=== PATIENT | female | born 1955 | race Caucasian/White ===

== ENCOUNTER 2016-10-09 23:07 | Emergency (ER) | payer MEDICARE ==
[~2016-10-09] VITALS: Ht 154.9 cm; Wt 81.8 kg
[~2016-10-09 23:07] MED LIST: BACL10TA PO; BENZ0.5T6 PO; BENZ2TAB10 PO; BUME1TAB30 PO; CARB-101 PO; CIPR-278 PO; CLON.1 PO; DULO60CA44 PO; GABA-531 PO; RASA0.5T PO; SERT50TA12 PO; TRAZ-147 PO
[2016-10-09 23:38] LABS: BASOPHILS % (AUTO) 0.4 % (0.0-2.0); EOSINOPHILS % (AUTO) 0 % (1.0-6.0); HEMATOCRIT 39.4 % (36-46); HEMOGLOBIN 12.8 g/dL (12.0-16.0); LYMPHOCYTES # (AUTO) 1.1 K/uL (1.0-4.8); LYMPHOCYTES % (AUTO) 12.2 % (22.0-44.0); MEAN CORPUSCULAR HEMOGLOBIN 27.9 pg (26.0-34.0); MEAN CORPUSCULAR HGB CONC 32.6 G/dL (31.0-37.0); MEAN CORPUSCULAR VOLUME 86 fL (80-100); MONOCYTES # (AUTO) 0.6 K/uL (0.1-1.0); MONOCYTES % (AUTO) 7.4 % (2.0-9.0); PLATELET COUNT (AUTO) 223 K/uL (150-450); RED BLOOD CELL COUNT(AUTO) 4.61 MIL/uL (4.00-5.20); RED CELL DISTRIBUTION WIDTH 14.3 % (11.5-14.5); WHITE BLOOD COUNT (AUTO) 8.7 K/uL (4.5-11.0)
[2016-10-09 23:46] LABS: ANION GAP 8 mmol/L (8-16); CALCIUM, TOTAL 9.4 mg/dL (8.8-10.5); CARBON DIOXIDE 29 mmol/L (22-29); CHLORIDE 106 mmol/L (98-107); CREATININE 0.83 mg/dL (0.60-1.30); GLOMERULAR FILTR. RATE CALC > 60 mL/min (>60); POTASSIUM 4.4 mmol/L (3.5-5.1); SODIUM SERUM 143 mmol/L (136-145); UREA NITROGEN, BLOOD 20 mg/dL (7-18)
[2016-10-09 23:53] LABS: ALANINE AMINOTRANSFERASE 16 U/L (12-78); ALBUMIN 3.4 g/dL (3.4-5.0); ASPARTATE AMINOTRANSFERASE 17 U/L (15-37); BILIRUBIN,TOTAL 0.4 mg/dL (0.1-1.0); TOTAL PROTEIN, SERUM 7.4 g/dL (6.4-8.2)
[2016-10-10] MEDS ORDERED: ASPI81TA2 PO (00:02)
[2016-10-10] MEDS ORDERED: PROP20 PO (00:02)
[2016-10-10] MEDS ORDERED: VITAD5000 PO (00:02)
[2016-10-10] MEDS ORDERED: LORA1TAB3 PO (00:02)
[2016-10-10] MEDS ORDERED: VORT20TA PO (00:02)
[2016-10-10] MEDS ORDERED: RIVA10 PO (00:02)
[2016-10-10] MEDS ORDERED: ALBU8.5H IH (00:02)
[2016-10-10 00:13] VITALS: BP 136/85
[2016-10-10] MEDS ORDERED: LORazepam 2 MG TABLET PO ONE (00:45)
[2016-10-10] MEDS ORDERED: HALOPERIDOL 5 MG TABLET PO ONE (00:45)
== END 2016-10-10 01:46 | disposition home or self-care (01) ==
LOC: EMS 23:09
DX: F29 Unspecified psychosis not due to a substance or known physiological condition (principal); F41.9 Anxiety disorder, unspecified; I10 Essential (primary) hypertension; Z86.14 Personal history of Methicillin resistant Staphylococcus aureus infection; Z88.1 Allergy status to other antibiotic agents; Z88.2 Allergy status to sulfonamides; Z88.8 Allergy status to other drugs, medicaments and biological substances; Z79.82 Long term (current) use of aspirin
CPT/HCPCS: 36415; 80053; 85025; 99284; G0480

== ENCOUNTER 2017-06-22 15:03 | Inpatient (IN) | payer MEDICARE, OTHER ==
[~2017-06-22] VITALS: Ht 167.6 cm; Wt 90.7 kg
[~2017-06-22 15:03] MED LIST changes: +ALBU8.5H8 IH; +ASPI81TA39 PO; -BENZ2TAB10 PO; -BUME1TAB30 PO; -CIPR-278 PO; +CLON-570 PO; -CLON.1 PO; +DIPH25 PO; +FURO40 PO; +LORA1TAB3 PO; +MORP30 PO; +PROP20 PO; -RASA0.5T PO; +RASA1TAB PO; +RIVA10 PO; +VITAD5000 PO; +VORT20TA PO
[2017-06-22 15:25] LABS: BASOPHILS # (AUTO) 0.04 K/uL (0.00-0.20); BASOPHILS % (AUTO) 0.4 % (0.0-2.0); EOSINOPHILS % (AUTO) 0 % (1.0-6.0); HEMATOCRIT 40.4 % (36-46); HEMOGLOBIN 13.2 g/dL (12.0-16.0); LYMPHOCYTES # (AUTO) 1.4 K/uL (1.0-4.8); LYMPHOCYTES % (AUTO) 16.5 % (22.0-44.0); MEAN CORPUSCULAR HEMOGLOBIN 28.6 pg (26.0-34.0); MEAN CORPUSCULAR HGB CONC 32.8 G/dL (31.0-37.0); MEAN CORPUSCULAR VOLUME 87 fL (80-100); MONOCYTES # (AUTO) 0.5 K/uL (0.1-1.0); MONOCYTES % (AUTO) 5.6 % (2.0-9.0); NEUTROPHILS # (AUTO) 6.7 K/uL (1.8-7.7); NEUTROPHILS % (AUTO) 77.5 % (40.0-70.0); PLATELET COUNT (AUTO) 200 K/uL (150-450); RED BLOOD CELL COUNT(AUTO) 4.63 MIL/uL (4.00-5.20); RED CELL DISTRIBUTION WIDTH 15.1 % (11.5-14.5); WHITE BLOOD COUNT (AUTO) 8.7 K/uL (4.5-11.0)
[2017-06-22 15:27] LABS: GLUCOSE,POINT OF CARE 97 MG/DL (70-110)
[2017-06-22 15:42] LABS: ANION GAP 11 mmol/L (8-16); CALCIUM, TOTAL 9.3 mg/dL (8.8-10.5); CARBON DIOXIDE 26 mmol/L (22-29); CHLORIDE 103 mmol/L (98-107); CREATININE 1.16 mg/dL (0.60-1.30); GLOMERULAR FILTR. RATE CALC 47 mL/min (>60); POTASSIUM 4.5 mmol/L (3.5-5.1); SODIUM SERUM 140 mmol/L (136-145); UREA NITROGEN, BLOOD 24 mg/dL (7-18)
[2017-06-22 15:51] LABS: INR 0.9 (0.9-1.1)
[2017-06-22] MEDS ORDERED: LORazepam 2 MG/ML VIAL ONE (16:00)
[2017-06-22 16:07] LABS: ALANINE AMINOTRANSFERASE 11 U/L (12-78); ALBUMIN 3.5 g/dL (3.4-5.0); ASPARTATE AMINOTRANSFERASE 26 U/L (15-37); BILIRUBIN,TOTAL 0.3 mg/dL (0.1-1.0); CREATINE KINASE MB 2.1 ng/mL (0-5); CREATINE KINASE, TOTAL 85 U/L (26-192); TOTAL PROTEIN, SERUM 7.7 g/dL (6.4-8.2)
[2017-06-22] MEDS ORDERED: NALOXONE HCL 1 MG/ML 2 ML SYG IVP ONE (17:15)
[2017-06-22] MEDS ORDERED: LORazepam 2 MG/ML VIAL IVP ONE (17:15)
[2017-06-22 17:36] LABS: APPEARANCE,URINE CLEAR (CLEAR); GLUCOSE, URINE (UA) NEGATIVE (NEGATIVE); KETONES,URINE NEGATIVE (NEGATIVE); LEUKOCYTE ESTERASE ,URINE NEGATIVE (NEGATIVE); OCCULT BLOOD,URINE NEGATIVE (NEGATIVE); PH,URINE 5.5 (5.0-8.0); PROTEIN,URINE NEGATIVE (NEGATIVE)
[2017-06-22 17:37] LABS: ADD UA MICROSCOPIC NO
[2017-06-22] MEDS ORDERED: ACETAMINOPHEN 325 MG TABLET PO PRN (18:15)
[2017-06-22] MEDS ORDERED: 0.9% SODIUM CHLORIDE 10 ML SYRINGE IVP PRN (18:15)
[2017-06-22] MEDS ORDERED: ONDANSETRON HCL 4 MG/2 ML VIAL IVP PRN (18:15)
[2017-06-22 20:35] VITALS: BP 134/67
[2017-06-23 00:20] VITALS: BP 124/76
[2017-06-23 06:15] VITALS: BP 137/73
[2017-06-23 07:58] VITALS: BP 131/81
[2017-06-23] MEDS ORDERED: MAGNESIUM HYDROXIDE SUSPENSION 30 ML UDCUP PO PRN (12:15)
[2017-06-23] MEDS ORDERED: ACETAMINOPHEN 325 MG TABLET PO PRN (12:15)
[2017-06-23 14:08] VITALS: BP 150/79
[2017-06-23] MEDS: RisperiDONE 0.5 MG TABLET PO SCH ×2 (15:35→20:11)
[2017-06-23 19:25] VITALS: BP 161/86
[2017-06-23] MEDS: DOCUSATE SODIUM 100 MG CAPSULE PO SCH (20:11)
[2017-06-23 23:40] VITALS: BP 162/97
[2017-06-24 06:16] VITALS: BP 149/78
[2017-06-24] MEDS: RisperiDONE 0.5 MG TABLET PO SCH (08:36)
[2017-06-24] MEDS: PANTOPRAZOLE SODIUM 40 MG DR TABLET PO SCH (08:36)
[2017-06-24] MEDS: DOCUSATE SODIUM 100 MG CAPSULE PO SCH ×2 (08:36→20:54)
[2017-06-24] MEDS: DEXTROSE 5%-0.45% SODIUM CHL 1,000 ML IV SCH (15:30)
[2017-06-24] MEDS: RisperiDONE 2 MG TABLET PO SCH ×2 (20:54→20:56)
[2017-06-25 08:33] LABS: BASOPHILS % (AUTO) 0.2 % (0.0-2.0); EOSINOPHILS % (AUTO) 0 % (1.0-6.0); HEMATOCRIT 43.5 % (36-46); HEMOGLOBIN 14.8 g/dL (12.0-16.0); LYMPHOCYTES # (AUTO) 0.7 K/uL (1.0-4.8); LYMPHOCYTES % (AUTO) 5.6 % (22.0-44.0); MEAN CORPUSCULAR HEMOGLOBIN 29.2 pg (26.0-34.0); MEAN CORPUSCULAR HGB CONC 33.9 G/dL (31.0-37.0); MEAN CORPUSCULAR VOLUME 86 fL (80-100); MONOCYTES # (AUTO) 0.8 K/uL (0.1-1.0); MONOCYTES % (AUTO) 6.2 % (2.0-9.0); NEUTROPHILS # (AUTO) 11.3 K/uL (1.8-7.7); PLATELET COUNT (AUTO) 265 K/uL (150-450); RED BLOOD CELL COUNT(AUTO) 5.06 MIL/uL (4.00-5.20); RED CELL DISTRIBUTION WIDTH 14.9 % (11.5-14.5); WHITE BLOOD COUNT (AUTO) 12.8 K/uL (4.5-11.0)
[2017-06-25 08:52] LABS: ALANINE AMINOTRANSFERASE 36 U/L (12-78); ALBUMIN 3.2 g/dL (3.4-5.0); ANION GAP 10 mmol/L (8-16); ASPARTATE AMINOTRANSFERASE 20 U/L (15-37); BILIRUBIN,TOTAL 0.5 mg/dL (0.1-1.0); CALCIUM, TOTAL 9.4 mg/dL (8.8-10.5); CARBON DIOXIDE 25 mmol/L (22-29); CHLORIDE 103 mmol/L (98-107); CREATININE 0.92 mg/dL (0.60-1.30); GLOMERULAR FILTR. RATE CALC > 60 mL/min (>60); POTASSIUM 4.1 mmol/L (3.5-5.1); SODIUM SERUM 138 mmol/L (136-145); TOTAL PROTEIN, SERUM 7.8 g/dL (6.4-8.2); UREA NITROGEN, BLOOD 19 mg/dL (7-18)
[2017-06-25] MEDS: DOCUSATE SODIUM 100 MG CAPSULE PO SCH ×2 (09:00→19:43)
[2017-06-25] MEDS: PANTOPRAZOLE SODIUM 40 MG DR TABLET PO SCH (09:00)
[2017-06-25] MEDS: DEXTROSE 5%-0.45% SODIUM CHL 1,000 ML IV SCH (09:16)
[2017-06-25 09:50] VITALS: BP 150/97
[2017-06-25 11:32] VITALS: BP 161/91
[2017-06-25 11:54] LABS: APPEARANCE,URINE CLOUDY (CLEAR); GLUCOSE, URINE (UA) NEGATIVE (NEGATIVE); KETONES,URINE NEGATIVE (NEGATIVE); LEUKOCYTE ESTERASE ,URINE SMALL (NEGATIVE); OCCULT BLOOD,URINE SMALL (NEGATIVE); PROTEIN,URINE POS 1+ (NEGATIVE)
[2017-06-25 11:55] LABS: ADD UA MICROSCOPIC YES
[2017-06-25 12:12] LABS: SQUAMOUS EPITHELIAL CELL,UR Few /LPF (None Seen)
[2017-06-25] MEDS: RisperiDONE 2 MG TABLET PO SCH (14:41)
[2017-06-25 15:36] VITALS: BP 163/97
[2017-06-25] MEDS: RisperiDONE 3 MG TABLET PO SCH (19:43)
[2017-06-25 19:57] VITALS: BP 171/102
[2017-06-25 20:17] VITALS: BP 159/99
[2017-06-26] VITALS (7 sets, daily range): BP systolic 139–170; BP diastolic 83–100
[2017-06-26] MEDS: DOCUSATE SODIUM 100 MG CAPSULE PO SCH ×2 (09:34→21:08)
[2017-06-26] MEDS: RisperiDONE 3 MG TABLET PO SCH ×2 (09:34→21:08)
[2017-06-26] MEDS: PANTOPRAZOLE SODIUM 40 MG DR TABLET PO SCH (09:34)
[2017-06-26] MEDS: DEXTROSE 5%-0.45% SODIUM CHL 1,000 ML IV SCH ×2 (10:24→14:56)
[2017-06-26] MEDS: CARVEDILOL 12.5 MG TABLET PO SCH ×2 (10:50→21:08)
[2017-06-26] MEDS ORDERED: INFLUENZA VIRUS VACCINE QVS 2017-18 (3YR+)/PF 60 MCG/0.5 ML SYRINGE IM ONE (11:45)
[2017-06-26] MEDS: LevETIRAcetam 500 MG TABLET PO SCH (22:08)
[2017-06-26] MEDS: BACLOFEN 10 MG TABLET PO SCH (22:08)
[2017-06-27 04:48] VITALS: BP 147/88
[2017-06-27 07:03] VITALS: BP 148/81
[2017-06-27] MEDS: RisperiDONE 3 MG TABLET PO SCH ×2 (08:14→20:16)
[2017-06-27] MEDS: LevETIRAcetam 500 MG TABLET PO SCH ×2 (08:14→20:16)
[2017-06-27] MEDS: DOCUSATE SODIUM 100 MG CAPSULE PO SCH ×2 (08:14→20:16)
[2017-06-27] MEDS: BACLOFEN 10 MG TABLET PO SCH ×4 (08:14→20:16)
[2017-06-27] MEDS: CARVEDILOL 12.5 MG TABLET PO SCH ×2 (08:14→20:16)
[2017-06-27] MEDS: PANTOPRAZOLE SODIUM 40 MG DR TABLET PO SCH (08:14)
[2017-06-27 11:41] VITALS: BP 157/91
[2017-06-27] MEDS: DEXTROSE 5%-0.45% SODIUM CHL 1,000 ML IV SCH ×2 (15:00→20:17)
[2017-06-27 16:54] VITALS: BP 132/79
[2017-06-27 19:56] VITALS: BP 141/72
[2017-06-27 23:07] VITALS: BP 143/72
[2017-06-28 04:22] VITALS: BP 161/83
[2017-06-28] MEDS: DEXTROSE 5%-0.45% SODIUM CHL 1,000 ML IV SCH (05:18)
[2017-06-28 07:59] VITALS: BP 138/93
[2017-06-28] MEDS: DOCUSATE SODIUM 100 MG CAPSULE PO SCH (08:01)
[2017-06-28] MEDS: LevETIRAcetam 500 MG TABLET PO SCH (08:01)
[2017-06-28] MEDS: PANTOPRAZOLE SODIUM 40 MG DR TABLET PO SCH (08:01)
[2017-06-28] MEDS: BACLOFEN 10 MG TABLET PO SCH ×2 (08:01→13:17)
[2017-06-28] MEDS: RisperiDONE 3 MG TABLET PO SCH (08:01)
[2017-06-28] MEDS: CARVEDILOL 12.5 MG TABLET PO SCH (08:01)
[2017-06-28] MEDS: CefTRIAXone 1 GM/DEXTROSE 50 ML IV ONE ×2 (10:53→10:59)
[2017-06-28] MEDS ORDERED: LIDOCAINE HCL/PF 1% 2 ML VIAL IM ONE (11:45)
[2017-06-28] MEDS ORDERED: CefTRIAXone SODIUM 1 GM/VIAL IM ONE (11:45)
[2017-06-28 12:01] VITALS: BP 134/78
== END 2017-06-28 15:00 | disposition home health service (06) | DRG 885 ==
LOC: EMS 15:04 → 5S 18:25 → 6N 20:08
PROVIDERS: ADMIT Internal Medicine; ATTEND Internal Medicine
DX: F20.0 Paranoid schizophrenia (principal); G93.40 Encephalopathy, unspecified; G20 Parkinson's disease; N39.0 Urinary tract infection, site not specified; R55 Syncope and collapse; N18.9 Chronic kidney disease, unspecified; I12.9 Hypertensive chronic kidney disease with stage 1 through stage 4 chronic kidney disease, or unspecified chronic kidney disease; F41.9 Anxiety disorder, unspecified; M54.9 Dorsalgia, unspecified; G62.9 Polyneuropathy, unspecified; E86.0 Dehydration; E66.9 Obesity, unspecified; F29 Unspecified psychosis not due to a substance or known physiological condition; R62.7 Adult failure to thrive; Z88.1 Allergy status to other antibiotic agents; Z86.14 Personal history of Methicillin resistant Staphylococcus aureus infection; Z91.19 Patient's noncompliance with other medical treatment and regimen; Z88.2 Allergy status to sulfonamides; Z79.899 Other long term (current) drug therapy; Z79.82 Long term (current) use of aspirin; Z79.01 Long term (current) use of anticoagulants; Z68.32 Body mass index [BMI] 32.0-32.9, adult; Z28.21 Immunization not carried out because of patient refusal
CPT/HCPCS: 51702; 70496; 70551; 82962; 87081; 87086; 93005; 96374; 96375; 99291; J0696; J2060; J2310